=== PATIENT | female | born 1985 | race Caucasian/White ===

== ENCOUNTER 2019-01-19 14:22 | Emergency (ER) | payer BC ==
[~2019-01-19] VITALS: Ht 165.1 cm; Wt 74.8 kg
--- OUTSIDE RECORDS SUMMARY | 2019-01-19 14:35 | XMS REPORT | Clinical Summary ---
Author Author [facility] Address Unknown Phone Unavailable Care Team Providers Care Spa Experience Coordinator Name Role Phone Asked, No Pcp PCP Unavailable Allergies Comments Active Allergy Reactions Severity Noted Date PT UNSURE OF REACTION. OCCURRED A CHILD. Penicillin G Other (See 09/14/2016 Comments) Sulfa (Sulfonamide Hives, 09/14/2016 Antibiotics) Itching, GI Intolerance Medications No known medications Active Problems No known active problems Family History Medical History Relation Name Comments Hypertension Father Hypertension Mother Relation Name Status Comments Father Alive Mother Alive Social History Date Tobacco Use Types Packs/Day Years Used Current Every Day Smoker Cigarettes Tobacco Cessation: Ready to Quit: Yes; Counseling Given: Yes Alcohol Use Drinks/Week oz/Week Comments Yes SOCIAL Sex Assigned at Date Recorded Not on file Industry Job Start Date Occupation Not on file Not on file Not on file Travel End Travel History Travel Start No recent travel history available. Last Filed Vital Signs Not on file Plan of Treatment Health Maintenance Due Date Last Done Comments INFLUENZA VACCINE 01/24/2019 Results Not on fileafter 01/18/2018 Insurance Type Payer Benefit Subscriber ID Effective Phone Address Plan / Dates Group PPO BCBS BCBS xxxxxxxxxxxx 2016-P CHOICE resent PPO/[employer] PPO (Home) [place] [address] Advance Directives Patient has advance care planning documents on file. For more information, edilson smith contact: Devin White [address] [place] [address]
--- OUTSIDE RECORDS SUMMARY | 2019-01-19 14:35 | XMS REPORT ---
Author Author [facility] Address Unknown Phone Unavailable Care Team Providers Care Nutrition Specialist Name Role Phone Unavailable Unavailable Problems This patient has no known problems. Allergies, Adverse Reactions, Alerts This patient has no known allergies or adverse reactions. Medications This patient has no known medications.
[2019-01-19] MEDS ORDERED: TETANUS/DIPHTHERIA TOX ADULT 0.5 ML SYR ONE (14:42)
[2019-01-19] MEDS ORDERED: LIDOCAINE 1% W/EPINEPHRINE 20 ML VIAL ONE (14:42)
[2019-01-19] MEDS ORDERED: LIDOCAINE 1% W/EPINEPHRINE 20 ML VIAL INJ ONE (14:45)
[2019-01-19] MEDS ORDERED: TETANUS/DIPHTHERIA TOX ADULT 0.5 ML SYR IM ONE (14:45)
--- NOTE | 2019-01-19 15:36 | Diagnostic Imaging Report ---
Exam: Right tibia/fibular radiographs-4 views History: Status post trauma. Comparison: None. Findings: No evidence of acute fracture, malalignment, or soft tissue abnormality. There is a 2 mm radiopaque density overlying the soft tissues of the lower medial knee. Impression: No acute radiographic abnormality. There is a 2 mm radiopacity overlying the soft tissues of the lower medial knee. This is favored to represent detector artifact. This can be correlated with clinical exam. Signed by: Dr. Pennie Junior MD on 01/19/2019 3:32 PM
[2019-01-19] MEDS ORDERED: SODIUM CHLORIDE 0.9% 250ML 250 ML ONE (23:36)
== END 2019-01-19 15:00 | disposition home or self-care (01) ==
LOC: FSED 14:30
DX: S81.811A Laceration without foreign body, right lower leg, initial encounter (principal); Z23 Encounter for immunization; W26.0XXA Contact with knife, initial encounter; Y93.H2 Activity, gardening and landscaping; Y92.017 Garden or yard in single-family (private) house as the place of occurrence of the external cause
CPT/HCPCS: 12001; 73590; 90471; 90714; 99284; J7050